=== PATIENT | female | born 1995 | race Caucasian/White ===

== ENCOUNTER 2019-07-04 19:04 | Emergency (ER) | payer OTHER ==
[2019-07-04 19:12] VITALS: BP 141/87
== END 2019-07-04 21:10 | disposition left against medical advice (07) ==
LOC: ED 19:04
DX: R07.89 Other chest pain (principal); Z53.21 Procedure and treatment not carried out due to patient leaving prior to being seen by health care provider
CPT/HCPCS: 93005; 99281